=== PATIENT | male | born 1985 | race Caucasian/White ===

== ENCOUNTER 2018-02-11 22:21 | Emergency (ER) | payer OTHER ==
[2018-02-11] MEDS ORDERED: DEXAMETHASONE 10 MG/ML VIAL PO STA (22:56)
--- NOTE | 2018-02-11 22:58 | ED Physician Documentation ---
History of Present Illness - Stated complaint Stated Complaint: SORE THROAT - Chief complaint Chief Complaint: Heent - History obtained from History obtained from: Patient - Additonal information Additional information: 32-year-old male presents the emergency department with a sore throat which has worsened over the past several days. The patient reports pain with swallowing and feels like his throat is swollen. The patient reports using his voice quite frequently recently at work. The patient reports feeling hoarse. Symptoms are described as moderate. No reports of fevers or chills or myalgias. No other associated symptoms. No relieving factors. Review of Systems Constitutional: denies: Fever, Chills Eyes: denies: Loss of vision, Discharge Ears: denies: Ear pain Nose: denies: Rhinorrhea / runny nose Throat: reports: Sore throat. denies: Dental pain / toothache, Oral lesions / sores GI: denies: Vomiting Immunocompromised: denies: Chemotherapy PD PAST MEDICAL HISTORY - Past Medical History Past Medical History: No - Past Surgical History Past Surgical History: Yes - Social History Does the pt smoke?: No Smoking Status: Never smoker Does the pt drink ETOH?: No Does the pt have substance abuse?: No - Immunizations Immunizations are current?: Yes - POLST Patient has POLST: No PD ED PE NORMAL - General General: Alert and oriented X 3, No acute distress, Well developed/nourished - HEENT HEENT: Atraumatic, PERRL, EOMI, Ears normal, Moist mucous membranes, Pharynx benign, Other (The tonsils are surgically absent, there is no signs of a. Tonsillar abscess, there is no erythema or inflammation of the posterior pharynx , the uvula is midline and nonedematous, the tongue is within normal limits, the floor the mouth is moist and no evidence of brawny edema. There is no appreciable swelling of the anterior neck, crepitus or edema. The trachea is midline. The teeth are within normal limits) - Neck Neck: Supple, no meningeal sign - Cardiac Cardiac: RRR, Strong equal pulses - Derm Derm: Normal color - Neuro Neuro: Alert and oriented X 3, Normal speech - Psych Psych: Normal mood Results - Vitals Vitals: Vital Signs - 24 hr 02/11/18 22:25 Temperature 36.8 C Heart Rate 56 L Respiratory 16 Rate Blood Pressure 165/96 H O2 Saturation 98 Oxygen O2 Source Room air - Labs Labs: Laboratory Tests 02/11/18 22:33 Group A Strep Rapid Negative PD MEDICAL DECISION MAKING - ED course ED course: No evidence of acute bacterial pharyngitis, this may be secondary to either a viral illness or overuse of his voice at a higher than normal level. The patient will be given a dose of Decadron. I have advised follow-up with primary care. I recommended that he should seek a ENT referral if his symptoms do not improve. The patient agrees and understands. I discussed warning signs and recommended returning to the emergency department immediately for worsening or any concerns. - Sepsis Event Vital Signs: Vital Signs - 24 hr 02/11/18 22:25 Temperature 36.8 C Heart Rate 56 L Respiratory 16 Rate Blood Pressure 165/96 H O2 Saturation 98 Oxygen O2 Source Room air Departure - Departure Disposition: 01 Home, Self Care Clinical Impression: Sore throat Condition: Good Instructions: Sore Throat Comments: These follow-up with your primary care physician in 1 week. If your symptoms are not improving you may need a referral to ENT for further workup and evaluation. Please return to the emergency department immediately for any worsening or any concerns.
[2018-02-11] MEDS ORDERED: CHERRY SYRUP 10 ML UDC PO ONE (23:12)
[2018-02-11 23:31] VITALS: BP 139/92
== END 2018-02-11 23:30 | disposition home or self-care (01) ==
LOC: ED 22:21
DX: J02.9 Acute pharyngitis, unspecified (principal)
CPT/HCPCS: 87070; 87430; 99283; A9270

== ENCOUNTER 2020-01-07 19:49 | Emergency (ER) | payer OTHER ==
[2020-01-07 19:59] VITALS: BP 125/78
--- NOTE | 2020-01-07 20:08 | ED Physician Documentation ---
History of Present Illness - Stated complaint Stated Complaint: R ARM PAIN - Chief complaint Chief Complaint: Ext Problem - History obtained from History obtained from: Patient - History of Present Illness Timing: How many weeks ago (several) - Additonal information Additional information: 34-year-old male has had right shoulder pain for the past several months. Today he noticed that his bicep looked different. He has been doing physical therapy. Better with rest, worse with pronation and lifting. No numbness or tingling. No new injury. Patient is right-handed. Review of Systems Constitutional: denies: Fever GI: denies: Vomiting Skin: denies: Rash Musculoskeletal: denies: Neck pain, Back pain PD PAST MEDICAL HISTORY - Past Medical History Past Medical History: No - Past Surgical History Past Surgical History: Yes - Present Medications Home Medications: Ambulatory Orders Medication Instructions Recorded Confirmed No Known Home Medications 02/11/18 02/11/18 - Allergies Allergies/Adverse Reactions: Allergies Allergy/AdvReac Type Severity Reaction Status Date / Time No Known Drug Allergies Allergy Verified 02/11/18 22:58 - Living Situation Living Arrangement: reports: At home - Social History Does the pt smoke?: No Smoking Status: Never smoker Does the pt drink ETOH?: No Does the pt have substance abuse?: No - Immunizations Immunizations are current?: Yes - POLST Patient has POLST: No PD ED PE NORMAL - Vitals Vital signs reviewed: Yes - General General: Alert and oriented X 3, No acute distress - HEENT HEENT: Moist mucous membranes - Neck Neck: Supple, no meningeal sign - Derm Derm: Warm and dry - Extremities Extremities: Other (Deformity to the right bicep. Pain with supination. Neurovascular intact. No tenderness around the shoulder.) - Neuro Neuro: Alert and oriented X 3 Results - Vitals Vitals: Vital Signs - 24 hr 01/07/20 19:52 Temperature 36.4 C L Heart Rate 71 Respiratory 18 Rate Blood Pressure 125/78 O2 Saturation 98 Oxygen O2 Source Room air PD MEDICAL DECISION MAKING - ED course Complexity details: considered differential, d/w patient ED course: Patient with what appears to be a biceps tendon rupture. Likely that he partially tore it a few months ago and completed the tear today. We will have him follow-up with his doctor on Thursday for referral to orthopedics. Neurovascular intact. Compartments are soft. Patient counseled regarding signs and symptoms for which I believe and urgent re-evaluation would be necessary. Patient with good understanding of and agreement to plan and is comfortable going home at this time This document was made in part using voice recognition software. While efforts are made to proofread this document, sound alike and grammatical errors may occur. Departure - Departure Disposition: Home, Self Care Clinical Impression: Biceps tendon tear Condition: Good Instructions: Biceps Tendonitis Proximal Follow-Up: Sarahy Cano MD [Primary Care Provider] - Tuan Benavides MD [Provider Admit Priv/Credential] - Comments: Peer to have a tear of your right bicep muscle versus tendon. You will likely need an MRI, you at [place] Follow-up with your doctor on Thursday for the appointment to orthopedics.
== END 2020-01-07 20:15 | disposition home or self-care (01) ==
LOC: ED 19:49
DX: S46.211A Strain of muscle, fascia and tendon of other parts of biceps, right arm, initial encounter (principal); X58.XXXA Exposure to other specified factors, initial encounter; Y93.B9 Activity, other involving muscle strengthening exercises
CPT/HCPCS: 99282

== ENCOUNTER 2020-01-18 16:10 | Outpatient (CLI) | payer OTHER | END 2020-01-18 16:11 | disposition home or self-care (01) | LOC: LAB 16:10 | PROVIDERS: ATTEND Orthopaedic Surgery | DX: Z01.812 Encounter for preprocedural laboratory examination (principal); S46.111A Strain of muscle, fascia and tendon of long head of biceps, right arm, initial encounter; Z20.828 Contact with and (suspected) exposure to other viral communicable diseases | CPT/HCPCS: 81599 ==

== ENCOUNTER 2020-01-20 11:45 | Day surgery (SDC) | payer OTHER ==
[~2020-01-20 11:45] MED LIST: BUPIVACAINE 0.25% PF 30 ML VIAL ONE; EPINEPHrine 1 MG/ML AMP ONE; cefTRIAXone 2 GM VIAL ONE
[2020-01-20] MEDS ORDERED: LACTATED RINGERS 1,000 ML IV ONE ×2 (11:50→14:56)
--- NOTE | 2020-01-20 12:46 | ANESTHESIA ---
Pre-Anesthesia VS, & Labs - Diagnosis Right distal biceps tear - Procedure Right shoulder arthroscopy with distal biceps repair Vital Signs: Temp Pulse Resp BP Pulse Ox 36.5 C 68 16 137/86 H 100 01/20/20 11:50 01/20/20 11:50 01/20/20 11:50 01/20/20 11:50 01/20/20 11:50 Height 6 ft 2 in Weight (kg) 100 kg Body Mass Index 28.2 - NPO >8 hours - Lab Results Lab results reviewed: Yes Home Medications and Allergies Home Medications: Ambulatory Orders Methylphenidate HCl [Concerta] 36 mg PO DAILY 01/19/20 Methylphenidate HCl [Concerta] 36 mg PO DAILY 01/19/20 Allergies/Adverse Reactions: Allergies Allergy/AdvReac Type Severity Reaction Status Date / Time No Known Drug Allergies Allergy Verified 01/19/20 12:45 Anes History & Medical History - Anesthetic History Anesthesia Complications: reports: No previous complications Family history of Anesthesia Complications: Denies Family history of Malignant Hyperthermia: Denies - Medical History Cardiovascular: reports: None Pulmonary: reports: None Gastrointestinal: reports: None Urinary: reports: None Musculoskeletal: reports: Other Endocrine/Autoimmune: reports: None Skin: reports: None Smoking Status: Never smoker - Surgical History Eyes Ears Nose Throat (EENT): Other Orthopedic: Other Exam General: Alert, Oriented x3, Cooperative Dental: WNL Mouth Openin Fingerbreadth Neck Mobility: Normal Mallampati classification: II Thyromental Distance: 4-6 cm Respiratory: Lungs clear Cardiovascular: Regular rate Plan Anesthesia Type: General, Supraclavicular Block Regional Block: Per Surgeon's request for Post Op pain control Consent for Procedure(s) Verified and Reviewed: Yes Code Status: Attempt Resuscitation ASA classification: 1-Healthy patient Is this case an emergency?: No
[2020-01-20] MEDS ORDERED: MIDAZOLAM 2 MG/2 ML VIAL IVP ONE (13:49)
[2020-01-20] MEDS ORDERED: ONDANSETRON 4 MG/2 ML VIAL IVP ONE (13:49)
[2020-01-20] MEDS ORDERED: DEXAMETHASONE 4 MG/ML VIAL IVP ONE (13:49)
[2020-01-20] MEDS ORDERED: fentaNYL 100 MCG/2 ML VIAL IVP ONE (13:49)
[2020-01-20] MEDS ORDERED: ROCURONIUM 50 MG/5 ML VIAL IVP ONE (13:49)
[2020-01-20] MEDS ORDERED: PROPOFOL 200 MG/20 ML VIAL IVP ONE (13:49)
[2020-01-20] MEDS ORDERED: ACETAMINOPHEN 1,000 MG/100 ML 100 ML IV ONE (13:49)
[2020-01-20] MEDS ORDERED: DEXMEDETOMIDINE 400 MCG/100 ML 100 ML IV ONE (14:45)
[2020-01-20] MEDS ORDERED: BUPIVACAINE 0.25% PF 30 ML VIAL SUBQ ONE ×2 (14:55→15:27)
[2020-01-20] MEDS ORDERED: SUGAMMADEX 200 MG/2 ML VIAL IVP ONE (15:24)
[2020-01-20] MEDS ORDERED: ONDANSETRON 4 MG/2 ML VIAL IVP PRN (15:36)
[2020-01-20] MEDS ORDERED: oxyCODONE 5 MG TABLET PO PRN (15:36)
--- NOTE | 2020-01-20 15:42 | OPERATIVE REPORT ---
Operative Report - Other Other Information/Narrative: Date of Surgery: 20 January 2020 Pre-Op Diagnosis: Right shoulder long head of biceps rupture Procedure: Right shoulder arthroscopy with labral debridement. Right shoulder open biceps tenodesis Postop Diagnosis: Same Primary Surgeon: Brooks Hicks Secondary Surgeon: Tuan Benavides Complications: None EBL: 25 cc IMPLANTS: Arthrex fiber tack x1 POSTOPERATIVE PLAN: 0-2 weeks-Sling at all times. Pendulum exercises 5 times per day. 2-6 weeks-Passive and active range of motion without limitations. No active flexion of the elbow 6-12 weeks-Gradually increase strengthening focusing on rotator cuff and scapular stabilizers per protocol. Active flexion of the elbow okay but no strengthening 12 weeksactive strengthening of the biceps allowed EXAMINATION UNDER ANESTHESIA: ROM: Full Anterior load and shift: Slight click equal to the contralateral side, but stable Posterior load and shift: Stable Inferior sulcus: Stable ARTHROSCOPIC FINDINGS: Rotator interval: Normal Biceps tendon & SLAP: Complete tear of the biceps tendon approximately 15 cm fro m its insertion in the superior labrum. The stump was debrided back to a stable base. There is no SLAP tear. The biceps tendon was found in the typical location within the groove during the open part of the procedure. Subscapularis: Normal. The biceps sling was disrupted. Rotator Cuff: Normal HAGL: Normal Labrum: Crack was seen from 3:00 to 9:00, but extensive probing did not reveal any unstable portions. The frayed edges were debrided with a shaver Glenoid Cartilage: Normal Humeral Head Cartilage: Normal INDICATION FOR SURGERY: 34-year-old male sustained a fall injury in July 2019 and had biceps related pain. 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 He was diagnosed with an acute tear of the long head of the biceps tendon and desired surgical management to restore full strength, prevent fatigue, and restore cosmesis. The risks, benefits, and alternatives were discussed. Risks included pain, bleeding, infection, damage to nearby structures, lack of symptom relief, implant complications, stiffness, need for further surgeries, DVT, PE, stroke, and even . He signed a written consent form. PROCEDURE IN DETAIL: The patient was met in the preoperative holding on the day of the procedure. Operative extremity was signed. Consent was verified. They desired to proceed. Regional anesthesia was obtained in the preoperative area. They were brought to the operating room and surrendered to anesthesia. Once general anesthesia was obtained they were placed in the lateral decubitus position with the operative side up. An axillary roll was placed and all bony prominences were well-padded. A surgical timeout was held to confirm the patient procedure, identity, procedure, laterality, allergies, images, and antibiotics. All were in agreement we proceeded. A standard diagnostic arthroscopy was performed utilizing posterior and anterosuperior portals. The anterosuperior portal was created under direct visualization and localized with a spinal needle. The 7 mm cannula was placed anteriorly. The findings of the diagnostic arthroscopy can be found above. The shaver and biter was used to debride the stump of the biceps tendon back to a stable base. I also used the shaver to debride the frayed portions of the anterior and in I visualize the posterior labrum from the front and probed extensively. I did not find any unstable labral tears which would be associated with instability and the patient did not complain of any instability I therefore chose to leave the labrum as it was. MINI OPEN BICEPS TENODESIS: A 6 cm incision was made near the axillary fold centered over the pectoralis major tendon. Electrocautery was used to obtain hemostasis. The fascia was opened with dissection scissors. Blunt digital dissection was used to identify the intertubercular groove just under the pectoralis major tendon. The long head of the biceps tendon was visualized within this interval. The short head of the biceps was retracted with my finger and the right angle was used to deliver the tendon of the long head of the biceps out of the wound. The tendon itself looked tendon attic in his most proximal section and a rind had formed around it. I excised the rind sharply. A menjivar elevator was then used to debride all synovial tissue from the intertubercular groove. A fibertack was placed high within the groove. Both limbs of the fibertack were pulled on and it was well fixed. I then whipstitched the biceps tendon starting 2 cm proximal to the musculotendinous junction down to the musculotendinous junction and back up to the same 2 cm location with a single limb of the suture tack. The other suture was placed once through the tendon at the 2 cm location. I then cut all excess tendon off. The suture limb that was passed the single time was then pulled on and this reduced the tendon nicely into the groove. The elbow was fully straightened and there was no excess tension on the repair site. I then tied 7 reverse half hitches alternating to secure the tendon in its place. The wound was then irrigated copiously. The portal sites were then closed with 3-0 Monocryl buried. Any open incisions were closed with 2-0 Vicryl in the dermis and a running 3-0 Monocryl in the skin. Mastisol and Steri-Strips were applied. A sterile dressing and a sling was applied. A sling was placed. The patient was awakened and transferred to the recovery room.
[2020-01-20 16:56] VITALS: BP 104/74
== END 2020-01-20 11:46 | disposition home or self-care (01) ==
LOC: SDS 11:45
PROVIDERS: ATTEND Orthopaedic Surgery
DX: S46.111A Strain of muscle, fascia and tendon of long head of biceps, right arm, initial encounter (principal)